=== PATIENT | female | born 1965 ===

== ENCOUNTER 2017-05-06 07:30 | Day surgery (SDC) | payer MEDICAID ==
[2017-05-02 07:54] VITALS: BMI 34.3
[2017-05-06] MEDS ORDERED: ceFAZolin 1 gm in NS 1 GM/100 ML BAG IVPB ONE (10:10)
[2017-05-06] MEDS ORDERED: Propofol 10 mg/ml Inj (20 ML) ONE (10:12)
[2017-05-06] MEDS ORDERED: Midazolam 2 MG/2 ML VIAL ONE (10:12)
[2017-05-06 10:20] VITALS: O2SAT 97
[2017-05-06] MEDS ORDERED: Labetalol 25mg/5ml Syringe ONE (10:51)
--- NOTE | 2017-05-06 10:53 | PCM.SURG1 ---
Surgeon's Initial Post Op Note - Surgeon's Notes Surgeon: dr donahue Heel Attacher Wood: none Type of Anesthesia: General LMA Anesthesia Administered By: dr bain Pre-Operative Diagnosis: 52 yr with endometrial polyp Operative Findings: see the op reort Post-Operative Diagnosis: same with end polyp Operation Performed: ecc. emc. polyp Specimen/Specimens Removed: ec. emc. polyp Estimated Blood Loss: EBL {In ML}: 20 Blood Products Given: N/A Drains Used: No Drains Post-Op Condition: Good Date of Surgery/Procedure: 05/06/17 Time of Surgery/Procedure: 11:00
[2017-05-06] MEDS ORDERED: HYDROmorphone 0.5 mg/0.5 ml ISec IVP PRN (11:03)
[2017-05-06] MEDS ORDERED: Labetalol 25mg/5ml Syringe IVP PRN (11:03)
[2017-05-06 12:47] VITALS: BP 122/61; PULSE 65; RESP 18; TEMP 98
--- NOTE | 2017-05-07 07:35 | OP ---
PROCEDURE DATE: PREOPERATIVE DIAGNOSIS: A 52 years old 2, para 2 with endometrial polyps. POSTOPERATIVE DIAGNOSIS: A 52 years old 2, para 2 with endometrial polyps. SURGEON: Rafa Longo MD TYPE OF ANESTHESIA: General anesthesia. ANESTHESIA ADMINISTERED BY: Dr. Rod. COMPLICATIONS: None. ESTIMATED BLOOD LOSS: 20 mL. PROCEDURE PERFORMED: MyoSure, D and C, and hysteroscopy. DEFICIT: 250 mL. DESCRIPTION OF PROCEDURE: After informed consent was obtained, the patient was brought to the operating room, placed on the table where general anesthesia was given. When anesthesia was found to be sufficient, she was prepped and draped in normal sterile fashion. Examination has found uterus to be anteverted. No pelvic or adnexal mass. The anterior lip of cervix was grasped with a tenaculum. Gentle dilatation of the cervix was done. negative. Pictures were taken and the decision was to use the MyoSure. MyoSure was used to take out the polyp. After that, sharp curettage of all the sorenson of the uterus was done and ECC was done. There cervix was bleeding so a stitch was placed. After that, the tenaculum was taken out. The patient tolerated the procedure well. Lap, sponge, and instrument counts were correct x2. The patient will follow up in 2 weeks. Rafa Longo MD
== END 2017-05-06 12:51 | disposition home or self-care (01) ==
LOC: C.SDS 07:30
PROVIDERS: ATTEND Obstetrics & Gynecology
DX: N84.0 Polyp of corpus uteri (principal)
CPT/HCPCS: 58558; 88305; J0690; J1100; J1885; J2001; J2250; J2405; J2704; J3010